=== PATIENT | male | born 1940 | race Caucasian/White ===

== ENCOUNTER 2023-08-15 17:23 | Inpatient (IN) | payer MEDICARE, OTHER, SELFPAY ==
[2023-08-15 11:17] VITALS: BP 166/81
[2023-08-15 11:24] VITALS: BMI 26.3
[2023-08-15] MEDS: NSS 500 IV (11:24)
[2023-08-15 11:47] LABS: PT 14.2 Sec (11.4-14.6)
[2023-08-15 11:58] LABS: Blood Urea Nitrogen 32 mg/dl (9-20); Calcium 8.3 mg/dl (8.4-10.2); Carbon Dioxide 22 mmol/L (22-30); Chloride 107 mmol/L (98-107); Estimated Creatinine Clearance 18 ml/min; Glucose 92 mg/dl (70-99); Sodium 134 mmol/L (135-145); eGFR 20.94
--- NOTE | 2023-08-15 12:52 | W.ICD.CONTRA ---
Post ICD/REVIEW ASSISTANT-D
-
History of AK?: Yes
LV Function
Left ventricular function study result?: Ejection Fraction </= 35%
ACEI/ARB/ARNI
Patient already on ACEI/ARB/ARNI: No
ACEI/ARB/ARNI Contraindication: Acute Renal Failure
Beta-Zaid
Patient already on Beta Zaid: Yes
--- NOTE | 2023-08-15 17:14 | ITS.CL.ICD ---
Import/Export Agent - ICD
Implantable Cardioverter Defibrillator
Procedure Report:
ICD IMPLANTATION REPORT
Date of Procedure: August 15, 2023
Primary Care Provider: Dr Ada Duncan
Primary link cutter: Dr Gene Zapata
gluer machine setup operator: Willie Estrella M.D.
PROCEDURES:
1. Right Heart Cath, 2. BiV ICD Implant
INDICATION FOR PROCEDURE:
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
- History of IN 25-30 years ago without intervention
- EF 40 to 45% 2020 now 30% 2022
- No change to regional wall motion abnormality between echocardiography (per report)
- Nuclear stress testing 2020 reported large inferior infarct without alice-infarct ischemia
- No intervention due to significant CKD and concern for worsening renal function and therefore manage medically
- On beta-kristi therapy; no CAROLA/ARB/ARNI/Aldactone due to renal function
- Noted left bundle branch block on EKG in office today and on prior ECGs with increasing QRS duration (136 ms in office today)
HISTORY: Please refer to office history and physical exam
After informed consent was obtained, a 'time out' was called and confirmed. The patient was prepped and draped in a sterile fashion.
Lidocaine with epi was used for local anesthesia. Central venous access was obtained via axillary venipuncture. An incision was made along the left chest and a pre-pectoral pocket was formed. Using a Seldinger technique and peel-away sheaths, the
pacing leads were placed under fluoroscopic guidance.
First the right ventricular ICD lead was placed. Next conductions pacing is attempted. Initially left bundle branch block conduction system was targeted but after several attempts, conduction system pacing occurred via His Bundle capture with
isoelectric interval from patient and pulse to onset of the QRS of 44 ms, left ventricular activation time is 74 ms and QRS duration is 130 ms.
Right atrial lead was placed in the right atrial appendage.
Once testing (see below) showed adequate and stable function, the leads were secured using the suture sleeves. The pocket was liberally irrigated with antibiotic solution. The leads were connected to the generator header and the leads and
generator were placed within the pocket. Fluoroscopy confirmed stable lead position. The pocket was closed in the typical fashion.
Antibiotic pouch was used
FLUOROSCOPY:
Fluoroscopy was used to guide lead placement.
IMPLANTS:
ICD Medtronic [id number], SN RTG [id number] , Left Pectoral
RA Medtronic 5076, SN PJNAMH 456
RV Medtronic 6935M, SN TDL [id number] V
His B Medtronic 4380, SN LFF [id number] V
DEVICE TESTING:
Sensing: RA 1, RV 16 mV, His B 12 mV
Capture: RA 2 V @ 0.4 ms, RV 0.6 V @ 0.4ms, His B 0.75 V@ 0.4ms
Ohms: RA 520, RV 580, LV 980
FINAL PROGRAMMING:
Favio Pacing: DDD 50-130
Tachy parameters:
VF: 188 bpm, ATP X 1, Shock
COMPLICATIONS:
None
CONCLUSIONS:
Normal function of cardiac resynchronization (resynchronization via a His bundle pacing) defibrillator.
RECOMMENDATIONS:
1. Telemetry monitoring, CXR
2. Office wound check in 5-7 days.
Copy:
Dr Ada Duncan
Dr Gene Zapata
[2023-08-15 17:52] VITALS: BP 148/85
[2023-08-15] MEDS: LOW STRENGTH ASPIRIN 81 MG PO (18:43)
[2023-08-15 19:54] VITALS: BP 156/90
[2023-08-15] MEDS: RANEXA EXTENDED RELEASE 500 MG PO (21:08)
[2023-08-15] MEDS: SODIUM BICARBONATE 650 MG PO (21:08)
[2023-08-15] MEDS: ANCEF 5 IV (21:08)
[2023-08-15] MEDS: TYLENOL 650 MG PO (21:34)
[2023-08-15] MEDS: MELATONIN 3 MG PO (21:34)
[2023-08-15 23:14] VITALS: BP 130/71
[2023-08-16] MEDS: NSS IV (02:33)
[2023-08-16 03:18] VITALS: BP 155/81
[2023-08-16 04:16] LABS: Hematocrit 27.7 % (39.0-52.0); Hemoglobin 9.6 g/dL (13.0-18.0); Mean Corp Hgb Conc. 34.7 g/dL (33.0-37.0); Mean Corpuscular Hgb 36.9 pg (27.0-31.0); Mean Corpuscular Volume 106.5 fL (80.0-94.0); Red Cell Dist. Width 13.1 % (11.5-14.5); White Blood Cell Count 4.9 10^3/uL (4.8-10.8)
[2023-08-16 04:35] LABS: Blood Urea Nitrogen 32 mg/dl (9-20); Calcium 7.9 mg/dl (8.4-10.2); Carbon Dioxide 22 mmol/L (22-30); Chloride 107 mmol/L (98-107); Estimated Creatinine Clearance 19 ml/min; Glucose 79 mg/dl (70-99); Potassium 4.7 mmol/L (3.5-5.1); Sodium 133 mmol/L (135-145); eGFR 21.84
[2023-08-16 05:37] LABS: Mean Platelet Volume 10.1 fL (7.4-10.4); Platelet Count 69 10^3/uL (130-400)
[2023-08-16] MEDS: SYNTHROID 100 MCG PO (06:20)
[2023-08-16] MEDS: ANCEF 5 IV (06:21)
[2023-08-16 07:00] VITALS: BP 141/76
--- NOTE | 2023-08-16 08:02 | W.PN.CARDCBS ---
Addendum entered and electronically signed by Rikki Galindo MD 08/16/23 09:35:
Patient seen and examined
Agree with MANAGER DEVELOPMENT note and assessment
Agree with MANAGER DEVELOPMENT plan
Exam:
Right-sided device clean dry and intact
Left-sided port
Telemetry reviewed
Appropriate AV sensing and pacing
Chest x-ray reviewed
ECG reviewed
Cor regular
Lungs are clear to oscillation bilaterally
Impression:
Chronic HFrEF 30%, recent acute CHF admission [facility] 07/18
post BiV ICD Medtronic 08/15/23
CAD/NH over 25 -30yrs ago med treatment
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
HTN
HLD
CKD 4
Large B-cell Lymphoma
Hypothyroidism
GERD
Pericarditis 03/2023
COVID 19 06/2023
Moderate
Plan:
post BiV ICD
site stable
tele Vpaced
CXR no PTX
HF continue beta-kristi therapy; no CAROLA/ARB/ARNI/Aldactone due to renal function
Resume Coumadin tonight goal INR 2-3, Check INR in 5 -7 days
Activity restrictions reviewed
inc check 1 week
home today
Will need f/u Echo 3-6 mo to reassess EF and monitor aortic stenosis
Original Note:
Today's Communication / Plan
-
stable for d/c home post BiV ICD
Impression / Plan
-
PCP: Ada Duncan, DO
PCY: Torie Melissa DO
Impression:
Chronic HFrEF 30%, recent acute CHF admission . 07/18
post BiV ICD Medtronic 08/15/23
CAD/NH over 25 -30yrs ago med treatment
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
HTN
HLD
CKD 4
Large B-cell Lymphoma
Hypothyroidism
GERD
Pericarditis 03/2023
COVID 19 06/2023
Moderate
Plan:
post BiV ICD
site stable
tele Vpaced
CXR no PTX
HF continue beta-kristi therapy; no CAROLA/ARB/ARNI/Aldactone due to renal function
Resume Coumadin tonight goal INR 2-3, Check INR in 5 -7 days
Activity restrictions reviewed
inc check 1 week
home today
Will need f/u Echo 3-6 mo to reassess EF and monitor aortic stenosis
Progress Note - Glass Washer And Carrier
Subjective
Date of Service: August 16, 2023
no cp, sob, mild inc pain
Objective
Labs:
08/16/23 03:23
08/16/23 03:23
Labs
Hgb 9.6 g/dL (13.0-18.0) L 08/16/23 03:23
Hct 27.7 % (39.0-52.0) L 08/16/23 03:23
Plt Count 69 10^3/uL (130-400) L 08/16/23 03:23
PT 14.2 Sec (11.4-14.6) 08/15/23 11:32
INR 1.10 08/15/23 11:32
Sodium 133 mmol/L (135-145) L 08/16/23 03:23
Potassium 4.7 mmol/L (3.5-5.1) 08/16/23 03:23
BUN 32 mg/dl (9-20) H 08/16/23 03:23
Creatinine 2.8 mg/dL (0.7-1.3) H 08/16/23 03:23
Glucose 79 mg/dl (70-99) 08/16/23 03:23
Vital Signs and I&O:
Vital Signs
Temp Pulse Resp BP Pulse Ox
97.7 F 68 18 155/81 100
08/16/23 03:29 08/16/23 03:18 08/16/23 03:29 08/16/23 03:18 08/16/23 03:29
Vital Signs
Temp Pulse Resp BP Pulse Ox
97.7 F 68 18 155/81 100
08/16/23 03:29 08/16/23 03:18 08/16/23 03:29 08/16/23 03:18 08/16/23 03:29
Intake & Output
08/14/23 08/15/23 08/16/23 08/17/23
06:59 06:59 06:59 06:59
Intake Total 40 / 40
Output Total 500 / 500 300 / 300
Balance -460 / -460 -300 / -300
Physical Exam
Physical Exam
NAD< AOx3
S1, S2, RRR
upper airway rhonchi, cleared with cough, no wheeze, non labored
SNTND Bsx4
R CW Aquacel dressing with small areas of dried blood marked, no HT, mild ecchymosis around site
multiple ecchymotic areas b/l upper extermities
[2023-08-16 08:45] VITALS: BMI 26.3
[2023-08-16] MEDS: CRESTOR 20 MG PO (08:52)
[2023-08-16] MEDS: MAG-TAB SR 84 MG PO (08:52)
[2023-08-16] MEDS: RANEXA EXTENDED RELEASE 500 MG PO (08:52)
[2023-08-16] MEDS: PROTONIX 40 MG PO (08:52)
[2023-08-16] MEDS: IMDUR (EXTENDED RELEASE) 30 MG PO (08:52)
[2023-08-16] MEDS: SODIUM BICARBONATE 650 MG PO (08:53)
--- NOTE | 2023-08-16 09:11 | CM ---
Reviewed chart. Met with Mr. Benítez to review discharge plans. He states prior to admission he resides with his spouse in a two story home with two steps to enter. He states he has a full flight of steps to get to bedroom/full bathroom. He states he
does not have a bathroom on the first floor. He states prior to admission he was independent with ambulation and adls. He states he cazares not have any DME in the home. He states he has a prescription plan and uses [facility]. Medical work-up in
progress. The discharge plan is to return home with his spouse when medically stable.
--- NOTE | 2023-08-16 09:47 | PTCARENOTE ---
Assumed care of pt from night RN. Pt received awake and alert, Ox3. VSS, CM shows 100% V-pacing, POX 99% on RA. Right upper chest pressure dsg removed by MACHINE MAINTENANCE TECHNICIAN, Aquacell remains intact, slight bruising noted around incision, site clean, dry and
soft. Pt denies any pain or discomfort. For D/C home today.
--- NOTE | 2023-08-16 12:02 | PTCARENOTE ---
All D/C info reviewed with pt, all quesetons answered. Pt D/C'd home with family member.
--- NOTE | 2023-08-16 12:25 | W.DS.TRANS ---
DC Summary - Gym Manager
-
Discharge Instructions:
Sleep Apnea Risk Low
Discharge Diagnosis/Procedures Bi-V ICD implant
Diet Low Cholesterol,Restrict fluids to 48 oz,Low
Sodium
Driving Restrictions No driving for 1 week
Bathing Restrictions OK to Shower
Blood Work Check INR on 08/22
Specialty Instructions Weigh Daily
Instructions: *DCA Heart Failure Instructions
Stand-Alone Forms: DC Inst - Implanted Device
Changes to Home Medications: No
Discharge Medications:
DC Medications w/original date entered in [facility]
Nerve Relief 1 tab PO DAILY 08/15/23
acetaminophen 500 mg tablet (Acetaminophen Extra Strength) 500 mg PO Q6H PRN neuropaphy 08/15/23
aspirin 81 mg tablet 81 mg PO QPM 08/15/23
cyanocobalamin-liver extract tablet 1 tab PO DAILY 08/15/23
isosorbide mononitrate 30 mg tablet,extended release 24 hr 30 mg PO DAILY Blood Pressure 08/15/23
levothyroxine 100 mcg tablet 100 mcg PO DAILY Thyroid 08/15/23
magnesium oxide 400 mg PO DAILY vitamin/mineral 08/15/23
melatonin 3 mg tablet 3 mg PO HS PRN insomnia 08/15/23
omega 5-mle-pam-fish oil 1,200 mg (144 mg-216 mg) capsule (Fish Oil) 1 cap PO DAILY 08/15/23
omeprazole 40 mg capsule,delayed release 40 mg PO DAILY stomach 08/15/23
ranolazine 500 mg tablet,extended release,12 hr 500 mg PO BID coronary disease/cehst pain 08/15/23
rosuvastatin 20 mg tablet (Crestor) 20 mg PO DAILY Cholesterol 08/15/23
sodium bicarbonate 650 mg tablet 650 mg PO BID kidneys 08/15/23
warfarin 2.5 mg tablet 2.5 mg PO SUTUWETHFRSA Blood thinner 08/15/23
warfarin 5 mg tablet 5 mg PO MO 08/15/23
Home Medication Changes
Pending Results: No
--- NOTE | 2023-08-27 13:45 | W.HF.CON ---
Heart Failure
- LV Function
Left ventricular function study result: LV Ejection fraction </= 35%
Ejection Fraction Percentage: 30
- ARNI
Patient already on ARNI: No
Heart Failure ARNI Contraindication: Worsening Renal Function
- ACEI/ARB
Patient already on ACEI/ARB: No
Heart Failure ACEI/ARB Contraindication: Worsening Renal Function
- Beta Zaid
Patient already on Evidence Based Beta Zaid: No
Heart Failure Evidence Based Beta Zaid: Mod/Severe Heart Failure
- Mineralocorticord Receptor Antagonist
Patient already on MRA: No
Heart Failure MRA Contraindication: Cr > 2.5 in Men
- SGLT-2 Inhibitor
Patient already on SGLT-2 Inhibitor: No
Heart Failure SGLT-2 Inhibitor Contraindication: eGFR < 25
- NYHA CHF Classification
NYHA CHF Classification Level: Class III - Symptoms w/ min exertion, interferes w/ nml daily activity
- ACC/AHA Stage
ACC/AHA Stage: Stage C: Symptomatic Heart Failure
== END 2023-08-16 12:03 | disposition home or self-care (01) | DRG 277 ==
LOC: IVU 17:23
PROVIDERS: Internal Medicine Cardiovascular Disease; Nurse Practitioner; ADMITTING PHYSICIAN Internal Medicine Cardiovascular Disease; PRIMARYCARE PHYSICIAN Internal Medicine
PROC: 5A2204Z Restoration of Cardiac Rhythm, Single (ICD-10-PCS; 2023-08-15)
PROC: 02H43KZ Insertion of Defibrillator Lead into Coronary Vein, Percutaneous Approach (ICD-10-PCS; 2023-08-15)
PROC: 02HK3KZ Insertion of Defibrillator Lead into Right Ventricle, Percutaneous Approach (ICD-10-PCS; 2023-08-15)
PROC: 02H63KZ Insertion of Defibrillator Lead into Right Atrium, Percutaneous Approach (ICD-10-PCS; 2023-08-15)
PROC: 0JH609Z Insertion of Cardiac Resynchronization Defibrillator Pulse Generator into Chest Subcutaneous Tissue and Fascia, Open Approach (ICD-10-PCS; 2023-08-15)
PROC: 4A023N6 Measurement of Cardiac Sampling and Pressure, Right Heart, Percutaneous Approach (ICD-10-PCS; 2023-08-15)
DX: I13.0 Hypertensive heart and chronic kidney disease with heart failure and stage 1 through stage 4 chronic kidney disease, or unspecified chronic kidney disease (principal); I50.22 Chronic systolic (congestive) heart failure; N18.4 Chronic kidney disease, stage 4 (severe); I82.401 Acute embolism and thrombosis of unspecified deep veins of right lower extremity; C85.10 Unspecified B-cell lymphoma, unspecified site; I42.9 Cardiomyopathy, unspecified; I44.7 Left bundle-branch block, unspecified; K21.9 Gastro-esophageal reflux disease without esophagitis; E78.5 Hyperlipidemia, unspecified; E03.9 Hypothyroidism, unspecified; I25.10 Atherosclerotic heart disease of native coronary artery without angina pectoris; I35.0 Nonrheumatic aortic (valve) stenosis; I25.2 Old myocardial infarction; Z86.16 Personal history of COVID-19; Z79.01 Long term (current) use of anticoagulants; Z79.890 Hormone replacement therapy; Z79.82 Long term (current) use of aspirin
CPT/HCPCS: 33225; 33249; 71045; 80048; 85027; 85610; 93005; C1769; C1777; C1882; C1887; C1892; C1898; Q9967

== ENCOUNTER 2023-08-21 19:31 | Emergency (ER) | payer MEDICARE, OTHER, SELFPAY ==
[2023-08-21 19:45] VITALS: BP 159/85
[2023-08-21 20:02] LABS: % Basophils 0.3 % (0-2); % Lymphocytes 25.6 % (20.5-51.1); % Monocytes 15.1 % (1.7-9.3); Absolute Eosinophils 0.1 10^3/uL (0-0.7); Absolute Immature Granulocytes 0.1 10^3/uL (0-0.05); Absolute Lymphocytes 0.9 10^3/uL (1.2-3.4); Absolute Monocytes 0.5 10^3/uL (0.1-0.6); Absolute Neutrophils 1.9 10^3/uL (1.4-6.5); Hematocrit 27.4 % (39.0-52.0); Hemoglobin 9.2 g/dL (13.0-18.0); Mean Corp Hgb Conc. 33.6 g/dL (33.0-37.0); Mean Corpuscular Hgb 36.7 pg (27.0-31.0); Mean Corpuscular Volume 109.2 fL (80.0-94.0); Mean Platelet Volume 10.1 fL (7.4-10.4); Nucleated Red Blood Cells % 0 % (-); Platelet Count 84 10^3/uL (130-400); Red Blood Cell Count 2.51 10^6/uL (4.70-6.10); Red Cell Dist. Width 13.1 % (11.5-14.5); White Blood Cell Count 3.5 10^3/uL (4.8-10.8)
[2023-08-21 20:25] LABS: ALT (SGPT) 16 U/L (0-50); AST (SGOT) 28 U/L (17-59); Albumin 3.4 g/dl (3.5-5.0); Alkaline Phosphatase 95 U/L (38-126); Blood Urea Nitrogen 29 mg/dl (9-20); Calcium 8.1 mg/dl (8.4-10.2); Carbon Dioxide 24 mmol/L (22-30); Glucose 102 mg/dl (70-99); Total Bilirubin 0.8 mg/dl (0.2-1.3); Total Protein 5.7 g/dl (6.3-8.2); eGFR 20.94
[2023-08-21 20:33] LABS: Troponin I 0.056 ng/ml
[2023-08-21 20:43] LABS: Chloride 104 mmol/L (98-107); Potassium 4.3 mmol/L (3.5-5.1); Sodium 134 mmol/L (135-145)
[2023-08-21 21:07] VITALS: BP 156/82
--- NOTE | 2023-08-21 21:48 | ED.GENMED ---
History of Present Illness
General
Chief Complaint: AICD Problem
Source: patient
Time Seen by Provider: 08/21/23 21:36
Travel History
Have you had any contact with someone who has COVID-19?: No
Do you have any symptoms of coronavirus? Fever > 100 degrees, chills, cough, shortness of breath, sore throat, loss of taste or smell, muscle aches, or headache?: No
History of Present Illness
History of Present Illness:
83-year-old male presents to the emergency room complaining of stinging pain in the site of the recent pacemaker placement. Device was placed about a week ago. He has an appointment tomorrow with his chain maker machine. Patient has no fever or chills.
Stinging pain is improved with Tylenol now. Patient has not taken note whether the area has become more swollen than what it was after the procedure. Patient states he was concerned that there might be a problem with the device or that it was
electrocuted.
Phy Exam
Physical Exam
Physical Exam:
General: Awake, Alert, Oriented X3. No acute distress.
Vitals: unremarkable
Head: Atraumatic
Eyes: Pupils equal, EOMI
Throat: Airway intact, no exudates
Neck: Trachea midline
Chest: Right-sided pacemaker pocket noted to have moderate swelling. Wound is well-approximated and not erythematous. The tissue over the swollen area is not erythematous but rather more ecchymotic.
Lungs: Clear and equal b/l
Heart: Regular rate, no murmurs
Abd: Soft, Nontender, No pulsatile mass
Neuro: Nonfocal
Skin: Warm, dry, no rash
Extremities: pulses equal b/l, no edema
Course
Orders/Labs/Results
Orders:
Orders
08/21/23 19:37
Electrocardiogram (*1) Urgent
Reason for Study: Chest Pain
Cardiac Monitoring- Treatment ONCE
EKG- Treatment ONCE
IV Insert/Care/Rem.- Treatment PRN
O2 Therapy [RESP] Urgent
Titrate/Wean O2 to maintain O2 sat greater than (%): 90
Special Instructions: Maintain sats >/=90%
Pulse Ox/spot Check [RESP] Urgent
Quantity: 1
Special Instructions: ON ROOM AIR
08/21/23 19:54
Complete Blood Count/With Diff Urgent
Comprehensive Metabolic Panel Urgent
Troponin I Urgent
Abnormal Lab Results
08/21/23
19:54
WBC 3.5 L 10^3/uL
(4.8-10.8)
RBC 2.51 L 10^6/uL
(4.70-6.10)
Hgb 9.2 L g/dL
(13.0-18.0)
Hct 27.4 L %
(39.0-52.0)
MCV 109.2 H fL
(80.0-94.0)
MCH 36.7 H pg
(27.0-31.0)
Plt Count 84 L D 10^3/uL
(130-400)
Abs Immat Gran (auto) 0.1 H 10^3/uL
(0-0.05)
Absolute Lymphs (auto) 0.9 L 10^3/uL
(1.2-3.4)
Immature Gran % 2.0 H %
(0-0.5)
Monocytes % 15.1 H %
(1.7-9.3)
Sodium 134 L mmol/L
(135-145)
BUN 29 H mg/dl
(9-20)
Creatinine 2.9 H mg/dL
(0.7-1.3)
Glucose 102 H mg/dl
(70-99)
Calcium 8.1 L mg/dl
(8.4-10.2)
Troponin I 0.056 H* ng/ml
Total Protein 5.7 L g/dl
(6.3-8.2)
Albumin 3.4 L g/dl
(3.5-5.0)
08/21/23 19:54
08/21/23 19:54
Vital Signs
Initial and Last Documented VS:
Initial Vital Signs
Temp Pulse Resp BP Pulse Ox
98.1 F 68 19 159/85 100
08/21/23 19:45 08/21/23 19:45 08/21/23 19:45 08/21/23 19:45 08/21/23 19:45
Last Documented Vital Signs
Temp Pulse Resp BP Pulse Ox
98.1 F 71 20 158/85 100
08/21/23 19:45 08/21/23 22:15 08/21/23 22:15 08/21/23 22:00 08/21/23 19:45
MDM/Problems Addressed
Differential Diagnosis Includes:
Postop hematoma, postop seroma, device malfunction
MDM/Problems Addressed:
Medtronic downloaded and report from the [employer] medical representative is that the device is functioning normally. Presentation seems most consistent with a pocket hematoma. Patient already took his dose of Coumadin for the day. Recommend he keep his
appointment tomorrow with cardiology. No further intervention necessary at this time. Patient's troponin noted to be 0.056. Given he had recent instrumentation of the heart in the form of pacemaker placement I do not feel this is significant. In
addition the patient has not had any chest pain but rather had pain over the site of his new device which I do not think is consistent with angina. EKG does not show any acute ischemic changes.
*Pulse Oximetry
Patient hypoxic: no
*EKG
Interpreted by ED Provider?: Yes
Heart Rate: 76
Rate: normal
Rhythm: ventricular paced
Ischemia: non-specific ST changes
*Groundskeeper Supervisor Interpretation
Rate: normal
Heart Rate: 76
Rhythm: ventricular paced
*Critical Care Note
Total Time (30-74mins, 75-104mins- exclusive of procedures): Not Applicable
ED Attending Note
-
Portions of this chart may have been created with voice recognition software.� Occasional wrong word or��sound alike� substitutions may have occurred due to the inherent limitations of voice recognition software.
Discharge Plan
Departure
Patient Disposition: Home (Routine Discharge)
Date of Disposition: 08/21/23
Time of Disposition: 22:33
Patient with high blood pressure during this ER visit?: No
Discharge Problem:
Postoperative hematoma
Instructions: Hematoma
Prescriptions:
No Action
isosorbide mononitrate 30 mg Tablet Extended Release 24 Hr
30 mg PO DAILY
warfarin 2.5 mg Tablet
2.5 mg PO SUTUWETHFRSA
acetaminophen [Acetaminophen Extra Strength] 500 mg Tablet
1,000 mg PO Q6HPRN PRN (Reason: neuropaphy)
levothyroxine 100 mcg Tablet
100 mcg PO DAILY
sodium bicarbonate 650 mg Tablet
650 mg PO BID
warfarin 5 mg Tablet
5 mg PO MO
rosuvastatin [Crestor] 20 mg Tablet
20 mg PO DAILY
ranolazine 500 mg Tablet Extended Release 12 Hr
500 mg PO BID
magnesium oxide 400 mg magnesium Tablet
400 mg PO DAILY
cyanocobalamin (vitamin B-12) 1,000 mcg Tablet
1,000 mcg PO DAILY
aspirin 81 mg Tablet,Delayed Release (Dr/Ec)
81 mg PO DAILY
Nervive
1 cap PO DAILY
Referrals:
Fly,Ada, DO [Family Provider] -
Activity Restrictions/Additional Instructions:
Please follow up with your chain maker machine tomorrow as scheduled.
Interventions
Interventions:
*Risk Screen - Suicide Last Done: 08/21/23 19:45
*General Assessment Last Done: 08/21/23 19:45
*Neglect/Abuse Screening Last Done: 08/21/23 19:45
ED- Fall Risk Assessment Last Done: 08/21/23 22:44
*ED COVID-19 Vaccine History Last Done: 08/21/23 19:45
*Nursing Disposition Last Done: 08/21/23 22:44
ED- Cardiac Assessment Last Done: 08/21/23 21:20
Discharge Date and Time
Discharge Date/Time: 08/21/23 22:45
[2023-08-21 22:00] VITALS: BP 158/85
== END 2023-08-21 22:45 | disposition home or self-care (01) ==
LOC: EMR 19:31
PROVIDERS: Emergency Medicine; EMERGENCY PHYSICIAN Emergency Medicine; FAMILY PHYSICIAN Internal Medicine
DX: I97.638 Postprocedural hematoma of a circulatory system organ or structure following other circulatory system procedure (principal); Y83.8 Other surgical procedures as the cause of abnormal reaction of the patient, or of later complication, without mention of misadventure at the time of the procedure; Y71.8 Miscellaneous cardiovascular devices associated with adverse incidents, not elsewhere classified; Z95.810 Presence of automatic (implantable) cardiac defibrillator
CPT/HCPCS: 99284; 80053; 84484; 85025; 93005